=== PATIENT | male | born 1960 ===

== ENCOUNTER → 2020-09-20 11:42 | Outpatient (BNVA) | payer MEDICAID, SELFPAY | PROVIDERS: PCP Internal Medicine Geriatric Medicine; Visit Provider Surgery | DX: D17.21 Benign lipomatous neoplasm of skin and subcutaneous tissue of right arm (principal) | CPT/HCPCS: 99212 ==

== ENCOUNTER 2020-09-29 06:07 | Day surgery (SDC) | payer MEDICAID, SELFPAY ==
[2020-09-23 16:32] VITALS: BMI 40.2
--- NOTE | 2020-09-28 09:55 | HO.ANESPROP2 ---
Documented by User: Nell Freeman 09/28/20 09:57 HPI - Anesthesia Eval Consult details Narrative: 60yo M for Right Excision of Forearm Cyst PMFSH Active Problems Active Problems: All Active Problems (Updated 09/23/20 @ 16:35 by Nancy Loera) Lipoma of right forearm (Acute) Past Medical History Medical History Asthma BPH (benign prostatic hyperplasia) Hypercholesterolemia Osteoarthritis Family History Family History Father Heart failure Mother Heart failure Brother Diabetes mellitus Brother Diabetes mellitus Maternal Uncle Prostate cancer Surgical History Surgical History History of circumcision History of colonoscopy Social History Social History Alcohol intake: former Smoking Status: Former smoker Years Smoked: 2013 Use of substances other than those prescribed or required for medical reasons: No Advance Directives: No Advance Directives Information Provided: No Advance Directives on File: No Meds Allergies Allergy/AdvReac Type Severity Reaction Status Date / Time No Known Allergies Allergy Verified 09/23/20 16:30 [No Known Allergies*] Home Medications Medication Instructions Recorded Confirmed Last Taken Type hydrocortisone 1 % topical spray 1 appl TOPICAL BID PRN 07/08/20 09/20/20 Unknown History naphazoline 0.025 %-pheniramine 1 drp OPHTHALMIC (EYE) BID-QID 07/08/20 09/20/20 Unknown History 0.3 % eye drops acetaminophen [Pain Relief 2 tab PO Q8H PRN 09/23/20 09/23/20 Unknown History (acetaminophen)] albuterol sulfate [ProAir HFA] 2 puff PO Q4-6H PRN 09/23/20 09/23/20 Unknown History fluticasone propionate [Flovent 1 puff PO BID 09/23/20 09/23/20 Unknown History HFA] tamsulosin 1 cap PO DAILY 09/23/20 09/23/20 Unknown History Exam Exam Date and Time: September 28, 2020 0955 Height,Weight and Vital Signs: Height 6 ft Weight 134.717 kg Assessment and Plan Assessment Anesthesia Assessment: Chart Reviewed Documented by User: Melinda Tavarez 09/29/20 08:04 [facility] Past Medical History Medical History Asthma BPH (benign prostatic hyperplasia) Hypercholesterolemia Osteoarthritis Family History Family History Father Heart failure Mother Heart failure Brother Diabetes mellitus Brother Diabetes mellitus Maternal Uncle Prostate cancer Surgical History Surgical History History of circumcision History of colonoscopy Social History Social History Alcohol intake: former Smoking Status: Former smoker Years Smoked: 2013 Use of substances other than those prescribed or required for medical reasons: No Advance Directives: No Advance Directives Information Provided: No Advance Directives on File: No Meds Allergies Allergy/AdvReac Type Severity Reaction Status Date / Time No Known Allergies Allergy Verified 09/23/20 16:30 [No Known Allergies*] Home Medications Medication Instructions Recorded Confirmed Last Taken Type hydrocortisone 1 % topical spray 1 appl TOPICAL BID PRN 07/08/20 09/20/20 Unknown History naphazoline 0.025 %-pheniramine 1 drp OPHTHALMIC (EYE) BID-QID 07/08/20 09/20/20 Unknown History 0.3 % eye drops acetaminophen [Pain Relief 2 tab PO Q8H PRN 09/23/20 09/23/20 Unknown History (acetaminophen)] albuterol sulfate [ProAir HFA] 2 puff PO Q4-6H PRN 09/23/20 09/23/20 Unknown History fluticasone propionate [Flovent 1 puff PO BID 09/23/20 09/23/20 Unknown History HFA] tamsulosin 1 cap PO DAILY 09/23/20 09/23/20 Unknown History Exam Airway Mallampati Class: III (Poor dentition) TM Dist: >3cm Neck ROM: Full Heart: RRR Lungs: CTA Assessment and Plan Assessment Anesthesia Assessment: Anesthesia Plan Discussed and Chart Reviewed Final Anesthetic Review NPO: Yes ASA Class: II Final Preanesthetic Review: Consent Obtained/Reviewed and Anes Risks/Benef Reviewed Patient Risk: Intermediate Procedure Risk: Low Anesthetic Plan Anesthetic Plan: GA Disposition: Standard PACU
[2020-09-29] VITALS (8 sets, daily range): BP systolic 106–136; BP diastolic 62–78; PULSE 65–92; RESP 16–18; TEMP 36.4–36.6; O2SAT 94–98
[2020-09-29] MEDS: Lactated Ringers 1,000 ML 100 ML IVCONT (06:42)
--- NOTE | 2020-09-29 07:07 | MHC.SHP ---
Pre-Procedural Eval Section A The patient is an INPATIENT: No Changes since office visit: Yes Patient answered all questions; No Cold of Flu in the past 2 weeks, No New Medical Problems and No Changes in Medication The History & Physical has been completed within 30 days and I have reviewed it.: Yes Section B Chief Complaint: Lipoma of right forearm Allergies: Allergies Allergy/AdvReac Type Severity Reaction Status Date / Time No Known Allergies Allergy Verified 09/23/20 16:30 [No Known Allergies*] Plan Diagnosis/Plan: Unchanged I have reviewed the history and physical and performed a pertinent physical examination on my patient. No changes have occurred unless specified.
--- NOTE | 2020-09-29 08:18 | W.PM.OPN ---
Operative Note Operative Note Date of Service: 09/29/20 Narrative: Preoperative diagnosis: Lipoma right forearm Postoperative diagnosis:same Procedure: Excision of lipoma right forearm Surgeon: Mckay Murrell MD Resource Conservation Specialist: Kate Polk PA-C Anesthesia:General LMA Indications for procedure: expanding lipoma of the right forearm which has become symptomatic with pain in the forearm extending down into the hand with areas of numbness in the hand. Operative findings: Larger than 6 cm lipoma extending below the flexor retinaculum. Superficial nerves were compressed by the lipoma. Specimen: Lipoma right forearm Estimated blood loss: 2 mL Complications: none Procedure details: patient was brought to the OR placed in a supine position. After administering general anesthesia the skin was prepped with ChloraPrep and draped in a sterile fashion over the right forearm. A surgical time-out was called and the consent confirmed. Patient received preoperative antibiotics and Venodyne boots were in place. Local anesthesia consisting of 0.5% Sensorcaine was infiltrated in the longitudinal fashion directly over the lipoma. Incision measuring approximately 5 cm was then created with a 15 blade. This was carried down through subcu tissue and up to the capsule of the lipoma. This was incised with a scalpel. The lipoma was then brought up through the incision. Combination of sharp and blunt dissection was then used to dissect the lipoma from the surrounding subcutaneous tissue. The lipoma was found to enter below the muscular fascia which was incised with the Metzenbaum scissors. A large component of the lipoma was found below the muscular fascia. Once the fascia was opened the lipoma easily was mobilized and removed. This was sent to pathology for further examination. The wounds were checked for hemostasis using electrocautery. Fascia was then reapproximated using interrupted 3 0 Polysorb sutures with special attention to avoid injury to the surrounding vascular structures or nerve. Subcutaneous tissue and dermis were reapproximated using interrupted 3-0 Polysorb sutures. Skin was then closed using a running subcuticular 4-0 Polysorb suture. Sterile dressings were then applied. The patient tolerated the procedure well. Sponge, instrument, needle counts reported as correct. Patient was transferred to PACU in stable condition.
== END 2020-09-29 09:48 | disposition home or self-care (01) ==
PROVIDERS: PCP Internal Medicine Geriatric Medicine; Visit Provider Surgery
PROC: (CPT 25073; principal; 2020-09-29 07:30)
DX: D17.21 Benign lipomatous neoplasm of skin and subcutaneous tissue of right arm (principal); J45.909 Unspecified asthma, uncomplicated; Z87.891 Personal history of nicotine dependence; Z79.51 Long term (current) use of inhaled steroids; Z79.899 Other long term (current) drug therapy
CPT/HCPCS: 25073; 88304; J0690; J1100; J2250; J2405; J3010

== ENCOUNTER → 2020-10-12 10:07 | Outpatient (BNVA) | payer MEDICAID, SELFPAY | PROVIDERS: PCP Internal Medicine Geriatric Medicine; Visit Provider Surgery | DX: D17.21 Benign lipomatous neoplasm of skin and subcutaneous tissue of right arm (principal) | CPT/HCPCS: 99212 ==

== ENCOUNTER → 2020-11-11 14:52 | Outpatient (BNVA) | payer MEDICAID, SELFPAY | PROVIDERS: PCP Internal Medicine Geriatric Medicine; Visit Provider Urology | DX: N52.01 Erectile dysfunction due to arterial insufficiency (principal); N40.0 Benign prostatic hyperplasia without lower urinary tract symptoms; D17.21 Benign lipomatous neoplasm of skin and subcutaneous tissue of right arm | CPT/HCPCS: 51798; 81002; 99212 ==

== ENCOUNTER 2021-02-09 16:02 | Outpatient (REF) | payer MEDICARE, MEDICAID, SELFPAY ==
--- NOTE | ~2021-02-09 | XR_ITS ---
EXAMINATION: XR CHEST CLINICAL INFORMATION: Dyspnea COMPARISON: Previous chest x-ray most recent April 2019 TECHNIQUE: 2 views of the chest were obtained. FINDINGS: The cardiac and mediastinal contours are stable. The lung volumes are low. The lungs are clear. There is no pleural effusion or pneumothorax. There are degenerative changes of the spine. XR/XR chest 2V IMPRESSION: No evidence for acute disease in the chest.
[2021-02-09 17:47] LABS: Prostate Specific Antigen 0.28 ng/mL (<0.05-4.0)
[2021-02-15 11:56] LABS: Testosterone, Free 19.4 pg/mL (35.0-155.0); Testosterone, Total 113 ng/dL (250-1100)
== END 2021-02-09 16:03 | disposition home or self-care (01) ==
LOC: HO.LAB 16:02
PROVIDERS: Absent Provider Urology; PCP Internal Medicine Geriatric Medicine; Visit Provider Internal Medicine Geriatric Medicine
DX: Z12.5 Encounter for screening for malignant neoplasm of prostate (principal); R06.00 Dyspnea, unspecified; R06.01 Orthopnea; R60.9 Edema, unspecified; N13.8 Other obstructive and reflux uropathy; N40.1 Benign prostatic hyperplasia with lower urinary tract symptoms; N52.01 Erectile dysfunction due to arterial insufficiency; E29.1 Testicular hypofunction
CPT/HCPCS: 36415; 71046; 84153; 84402; 84403

== ENCOUNTER 2021-08-17 08:05 | Outpatient (REF) | payer MEDICARE, MEDICAID, SELFPAY ==
--- NOTE | ~2021-08-17 | XR_ITS ---
EXAMINATION: BILATERAL FOOT X-RAY CLINICAL INFORMATION: Bilateral foot pain COMPARISON: Bilateral ankle x-rays TECHNIQUE: 3 views of each foot FINDINGS: Right: No fracture or dislocation is seen. There is hallux valgus deformity and degenerative change at the first MTP joint. Joint spaces are otherwise normal. There are calcaneal spurs. Left: No fracture or dislocation is seen. There is mild hallux valgus deformity and degenerative change at the first MTP joint. Joint spaces are otherwise normal. There are calcaneal spurs. XR/XR foot LT min 3V IMPRESSION: Bilateral arthritis at the first MTP joints and hallux valgus deformity. Bilateral calcaneal spurs.
--- NOTE | ~2021-08-17 | XR_ITS ---
EXAMINATION: BILATERAL FOOT X-RAY CLINICAL INFORMATION: Bilateral foot pain COMPARISON: Bilateral ankle x-rays TECHNIQUE: 3 views of each foot FINDINGS: Right: No fracture or dislocation is seen. There is hallux valgus deformity and degenerative change at the first MTP joint. Joint spaces are otherwise normal. There are calcaneal spurs. Left: No fracture or dislocation is seen. There is mild hallux valgus deformity and degenerative change at the first MTP joint. Joint spaces are otherwise normal. There are calcaneal spurs. XR/XR foot RT min 3V IMPRESSION: Bilateral arthritis at the first MTP joints and hallux valgus deformity. Bilateral calcaneal spurs.
== END 2021-08-17 08:06 | disposition home or self-care (01) ==
LOC: HO.XRAY 08:05
PROVIDERS: Absent Provider Internal Medicine Geriatric Medicine; PCP Internal Medicine Geriatric Medicine; Visit Provider Internal Medicine Geriatric Medicine
DX: M79.671 Pain in right foot (principal); M79.672 Pain in left foot
CPT/HCPCS: 73630

== ENCOUNTER 2022-05-14 17:05 | Outpatient (REF) | payer OTHER, SELFPAY ==
--- NOTE | ~2022-05-14 | MR_ITS ---
EXAMINATION: MR LUMBAR SPINE WITHOUT CONTRAST CLINICAL INFORMATION: 62-year-old with self-reported low back pain and bilateral sciatica. Radiculopathy, lumbar region. COMPARISON: None TECHNIQUE: MRI of the lumbar spine was obtained using routine sequences without contrast. FINDINGS: CORONAL ALIGNMENT: Normal. SAGITTAL ALIGNMENT: Normal. LUMBOSACRAL JUNCTION: Normal. 5 nonrib-bearing lumbar-type vertebral bodies. VERTEBRAL BODIES: Vertebral body heights are well maintained. DISC SPACES AND ENDPLATES: The intervertebral disc space heights are well maintained. There are mild degrees of disc desiccation at multiple levels, most apparent at L2-L3 and L3-L4 and there are ecor-np-jdtajaev degrees of anterolateral spondylosis at multiple levels, most prominent at L1-L2 and L2-L3. There is fishmouth remodeling along the endplates throughout the lumbar spine. SPINAL CANAL: There is fatty infiltration of the filum terminale which measures 1.5 mm in maximum cross-sectional diameter. BONE MARROW: No significant marrow-replacing process or bone marrow edema. CONUS MEDULLARIS: Terminates at L1. Morphology and signal is normal. INTRADURAL NERVE ROOTS: Within normal limits. L5-S1: Minor annular bulging noted without significant thecal sac encroachment. Moderate left and the kreoislq-vz-wprnrx right facet arthropathy noted without significant canal or neural foraminal stenosis. L4-L5: No significant disc bulging or herniation. Small left lateral disc osteophyte complex encroaching on the inferior left neural foramen without neural impingement. Sblk-vt-tvdppdpp right and ojnqpufw-ai-pjzwjs left-sided facet arthropathy noted without significant spinal canal stenosis. There is spyd-cg-iofenrmx left-sided neural foraminal narrowing without neural impingement. L3-L4: Minor disc bulging noted with a superimposed small right paramedian to right foraminal disc protrusion with mild flattening of the ventral dural sac asymmetric to the right without neural impingement. No significant facet arthrosis or canal stenosis. There is mild right-sided foraminal narrowing without neural impingement. L2-L3: Small right-sided inferior foraminal disc protrusion noted without neural impingement. No significant facet arthrosis, canal or neural foraminal stenosis. L1-L2: No significant disc bulge or herniation. No facet arthrosis, canal or neural foraminal stenosis. PARASPINAL/RETROPERITONEAL: The paravertebral soft tissues appear unremarkable. There is dependent soft tissue edema in the subcutaneous fat posteriorly. MR/MR lumbar spine wo con IMPRESSION: 1. Normal spinal alignment, with mild multilevel disc desiccation and multilevel spondylosis. 2. Small right paramedian to right foraminal disc protrusion at L3-L4 and small right inferior foraminal disc protrusion at L2-L3 without neural impingement or significant spinal canal stenosis. 3. Multilevel bilateral facet arthropathy, most apparent on the left at L4-L5 and L5-S1 with mlau-sn-yontopnv left-sided neural foraminal stenosis at L4-L5 without neural impingement and mild right-sided neural foraminal narrowing at L3-L4 without neural impingement. 4. Fatty infiltration of the filum terminale which is a developmental finding.
== END 2022-05-14 17:06 | disposition home or self-care (01) ==
LOC: HO.MRI 17:05
PROVIDERS: PCP Internal Medicine Geriatric Medicine; Visit Provider Internal Medicine Geriatric Medicine
DX: M54.16 Radiculopathy, lumbar region (principal); R29.898 Other symptoms and signs involving the musculoskeletal system
CPT/HCPCS: 72148

== ENCOUNTER 2023-02-12 16:34 | Outpatient (REF) | payer OTHER, SELFPAY ==
[2023-02-12 18:15] LABS: Creatinine Urine 228.22 mg/dL
== END 2023-02-12 16:35 | disposition home or self-care (01) ==
LOC: HO.HHCL 16:34
PROVIDERS: Visit Provider Internal Medicine Geriatric Medicine
DX: E11.69 Type 2 diabetes mellitus with other specified complication (principal); E66.9 Obesity, unspecified; I10 Essential (primary) hypertension
CPT/HCPCS: 82043

== ENCOUNTER 2023-05-29 11:03 | Outpatient (REF) | payer OTHER, SELFPAY ==
[2023-05-29 14:09] LABS: Anion Gap 9 (12-20); Blood Urea Nitrogen 14 mg/dL (9-16); Carbon Dioxide 29 mmol/L (22-29); Chloride 107 mmol/L (96-108); Estimated Glomerular Filt Rate > 60; Glucose Random 121 mg/dL (60-115); Potassium 4.3 mmol/L (3.3-5.1); Sodium 141 mmol/L (135-145)
[2023-05-29 14:26] LABS: Creatinine Urine 155.67 mg/dL; Microalbum/Creatinine Ratio Ur 5.1 ug/mg cr (<30)
[2023-05-29 14:31] LABS: Vitamin B12 312 pg/mL (200-900)
[2023-06-01 23:09] LABS: Testosterone, Total 298 ng/dL (250-1100)
== END 2023-05-29 11:04 | disposition home or self-care (01) ==
LOC: HO.HHCL 11:03
PROVIDERS: Visit Provider Internal Medicine Geriatric Medicine
DX: E11.69 Type 2 diabetes mellitus with other specified complication (principal); E66.9 Obesity, unspecified; I95.9 Hypotension, unspecified; R79.89 Other specified abnormal findings of blood chemistry
CPT/HCPCS: 36415; 80048; 82043; 82570; 82607; 84403

== ENCOUNTER → 2023-09-10 11:24 | Outpatient (BNVA) | payer OTHER, SELFPAY | PROVIDERS: PCP Internal Medicine Geriatric Medicine; Visit Provider Physician Assistant ==

== ENCOUNTER 2023-10-24 09:32 | Outpatient (REF) | payer OTHER, SELFPAY ==
[2023-10-24 11:52] LABS: Anion Gap 12 (12-20); Blood Urea Nitrogen 15 mg/dL (9-16); Calcium 10.1 mg/dL (8.4-10.2); Carbon Dioxide 31 mmol/L (22-29); Chloride 105 mmol/L (96-108); Estimated Glomerular Filt Rate > 60; Glucose Random 130 mg/dL (60-115); Potassium 4.2 mmol/L (3.3-5.1); Sodium 144 mmol/L (135-145)
== END 2023-10-24 09:33 | disposition home or self-care (01) ==
LOC: HO.HHCL 09:32
PROVIDERS: Visit Provider Internal Medicine Geriatric Medicine
DX: I10 Essential (primary) hypertension (principal)
CPT/HCPCS: 36415; 80048

== ENCOUNTER 2023-12-10 06:34 | Day surgery (SDC) | payer OTHER, SELFPAY ==
[2023-12-10 07:17] VITALS: BMI 41.6
[2023-12-10 07:19] VITALS: BP 112/72; PULSE 75; RESP 16; TEMP 36.1; O2SAT 96
[2023-12-10] MEDS: Lactated Ringers 1,000 ML 100 ML IVCONT (07:27)
[2023-12-10 07:35] LABS: Glucose, Whole Blood 116 mg/dL (60-115)
--- NOTE | 2023-12-10 07:45 | HO.ANESPROP2 ---
Documented by User: Nell Freeman NP 12/09/23 11:48 HPI - Anesthesia Eval Consult details Narrative: 63yo M for Colonoscopy PMFSH Active Problems Active Problems: All Active Problems Sleep apnea (Acute) History of colon polyps (Acute) BPH (benign prostatic hyperplasia) (Acute) Erectile dysfunction due to arterial insufficiency (Acute) Lipoma of right forearm (Acute) Past Medical History Medical History (Updated 12/10/23 @ 07:16 by Alayna Palencia RN) Diabetes HTN (hypertension) Asthma BPH (benign prostatic hyperplasia) Hypercholesterolemia Osteoarthritis Family History Family History Father Heart failure Mother Heart failure Brother Diabetes mellitus Brother Diabetes mellitus Maternal Uncle Prostate cancer Surgical History Surgical History (Updated 12/10/23 @ 07:17 by Alayna Palencia RN) Hx of hand surgery History of circumcision History of colonoscopy Social History Social History (Updated 09/10/23 @ 11:52 by Temitope Freeman PA-C) Household Members Other:: single Alcohol intake: former Patient Tobacco Use Status: Former Tobacco user Quit Date: 10 yrs ago Years Smoked: 2013 Use of substances other than those prescribed or required for medical reasons: No Are you DNR?: No Advance Directives: No Advance Directives Information Provided: Yes Current occupational status: unemployed Meds Allergies Allergy/AdvReac Type Severity Reaction Status Date / Time No Known Allergies Allergy Verified 12/10/23 07:16 [No Known Allergies*] Home Medications ?Medication ?Instructions ?Recorded ?Confirmed ?Last Taken ?Type hydrocortisone 1 % topical spray 1 appl topical BID PRN 07/08/20 09/10/23 Unknown History (Anti-Itch (hydrocortisone)) naphazoline 0.025 %-pheniramine 1 drp ophthalmic (eye) BID-QID 07/08/20 09/10/23 Unknown History 0.3 % eye drops (Naphcon-A) acetaminophen 650 mg 2 tab PO Q8H PRN Pain 09/23/20 09/10/23 Unknown History tablet,extended release (Pain Relief (acetaminophen)) albuterol sulfate 90 mcg/actuation 2 puff PO Q4-6H PRN Shortness Of 09/23/20 09/10/23 09/29/20 History aerosol inhaler (ProAir HFA) Breath fluticasone propionate 110 1 puff PO BID 09/23/20 09/10/23 Unknown History mcg/actuation HFA aerosol inhaler (Flovent HFA) Assessment and Plan Assessment Anesthesia Assessment: Chart Reviewed Documented by User: Alayna Vasquez DO 12/10/23 07:48 [facility] Past Medical History Medical History (Updated 12/10/23 @ 07:16 by Alayna Palencia, RN) Diabetes HTN (hypertension) Asthma BPH (benign prostatic hyperplasia) Hypercholesterolemia Osteoarthritis Family History Family History Father Heart failure Mother Heart failure Brother Diabetes mellitus Brother Diabetes mellitus Maternal Uncle Prostate cancer Family history of problems with anesthesia: No Surgical History Surgical History (Updated 12/10/23 @ 07:17 by Alayna Palencia RN) Hx of hand surgery History of circumcision History of colonoscopy History of Problems with Anesthesia: No Social History Social History (Updated 09/10/23 @ 11:52 by Temitope Freeman PA-C) Household Members Other:: single Alcohol intake: former Patient Tobacco Use Status: Former Tobacco user Quit Date: 10 yrs ago Years Smoked: 2013 Use of substances other than those prescribed or required for medical reasons: No Are you DNR?: No Advance Directives: No Advance Directives Information Provided: Yes Current occupational status: unemployed Meds Allergies Allergy/AdvReac Type Severity Reaction Status Date / Time No Known Allergies Allergy Verified 12/10/23 07:16 [No Known Allergies*] Home Medications ?Medication ?Instructions ?Recorded ?Confirmed ?Last Taken ?Type hydrocortisone 1 % topical spray 1 appl topical BID PRN 07/08/20 09/10/23 Unknown History (Anti-Itch (hydrocortisone)) naphazoline 0.025 %-pheniramine 1 drp ophthalmic (eye) BID-QID 07/08/20 09/10/23 Unknown History 0.3 % eye drops (Naphcon-A) acetaminophen 650 mg 2 tab PO Q8H PRN Pain 03/05/21 02/20/24 Unknown History tablet,extended release (Pain Relief (acetaminophen)) albuterol sulfate 90 mcg/actuation 2 puff PO Q4-6H PRN Shortness Of 09/23/20 09/10/23 09/29/20 History aerosol inhaler (ProAir HFA) Breath fluticasone propionate 110 1 puff PO BID 09/23/20 09/10/23 Unknown History mcg/actuation HFA aerosol inhaler (Flovent HFA) Exam Exam Date and Time: December 10, 2023 0745 Height,Weight and Vital Signs: Height 6 ft Weight 139.253 kg Vital Signs Temperature 96.9 F 12/10/23 07:19 Pulse Rate 75 12/10/23 07:19 Respiratory Rate 16 12/10/23 07:19 Blood Pressure 112/72 12/10/23 07:19 Pulse Oximetry 96 12/10/23 07:19 Oxygen Delivery Method Room Air 12/10/23 07:19 Temperature 96.9 F 12/10/23 07:19 Pulse Rate 75 12/10/23 07:19 Respiratory Rate 16 12/10/23 07:19 Blood Pressure 112/72 12/10/23 07:19 Pulse Oximetry 96 12/10/23 07:19 Oxygen Delivery Method Room Air 12/10/23 07:19 Airway Mallampati Class: II TM Dist: >3cm Neck ROM: Full Loose/Missing/Broken Teeth: Yes (multiple missing teeth but nothing loose per patient) Heart: S1S2 Lungs: CTAB Assessment and Plan Assessment Anesthesia Assessment: Anesthesia Plan Discussed and Chart Reviewed Final Anesthetic Review Family History of Problems with Anesthesia: No History of Problems with Anesthesia: No NPO: Yes ASA Class: III Final Preanesthetic Review: No Changes in Pt Med Stat, Meds/Allgs Chart Reviewed, Consent Obtained/Reviewed and Anes Risks/Benef Reviewed Patient Risk: Intermediate Procedure Risk: Low Anesthetic Plan Anesthetic Plan: MAC: and Agree w/ Assess. and Plan Disposition: Standard PACU
--- NOTE | 2023-12-10 08:12 | MHC.SHP ---
Pre-Procedural Eval Section A - 24 Hr Update-Section A only Date of Service: 12/10/23 Section B - Complete if H&P > 30 days Chief Complaint: Encounter for screening for malignant neoplasm of Details of Present Illness: History of circumcision History of colonoscopy Family History Father Heart failure Mother Heart failure Brother Diabetes mellitus Brother Diabetes mellitus Maternal Uncle Prostate cancer Present Medications: see Short Stay Collaborative assessment Allergies: Allergies Allergy/AdvReac Type Severity Reaction Status Date / Time No Known Allergies Allergy Verified 12/10/23 07:16 [No Known Allergies*] Review of Systems Review of Systems Comment: Ten point ROS negative Exam Exam Comment: Gen appear: No acute distress HEENT: no icterus Chest: No overt resp distress Abd: soft, nontender, nondistended Psych: Stable affect, answering questions appropriately Neuro: A/Ox3 noted to move all extremities spontaneously Ext: no peripheral edema Plan Diagnosis/Plan: Unchanged I have reviewed the history and physical and performed a pertinent physical examination on my patient. No changes have occurred unless specified. Time Spent With Patient Time: Total time managing care of this patient today ____ minutes.
--- NOTE | 2023-12-10 08:55 | P.OPN-COLO_ITS ---
Colonoscopy Operative Note Operative Note Date of Service: 12/10/23 Narrative: Procedure: Colonoscopy Indication: Screening Endoscopist: Zahira Franks MD Anesthesia Provider: Lis Campos CRNA Anesthesia type: MAC Instrument: Olympus [id number]-H190L Consent: Indication, risks vs benefits, and alternatives were discussed with the patient who gave written informed consent to proceed. EKG, pulse, pulse oximetry and blood pressure were monitored throughout the procedure. Please see anesthesia flowsheet. Procedure: The patient was brought to the procedure room and placed in the left lateral decubitus position. IV medications were administered by the anesthesia provider in attendance. A digital rectal exam was performed which was normal. A distal attachment cap was affixed to the tip of the colonoscope which was then inserted through the anus and advanced through the colon to the cecum at 80 cm,and terminal ileum. Appendiceal orifice and ileocecal valve were identified. Mucosa was carefully examined under high definition white light as the instrument was slowly withdrawn in a retrograde panoramic fashion. Retroflexion was performed in rectum. The procedure was not difficult. There were no immediate obvious complications. The quality of the prep was BBPS: 2+3+2 = adequate Withdrawal time 11 minutes. Limitations: No limitations. Findings: Mucosa: Normal to cecum and terminal ileum. Protruding lesions: * 2 sessile polyp of size 3-7 mm in ascending colon. Cold snare polypectomy was performed. The polyps were completely removed and retrieved. * 1 sessile polyp of size 2 mm in transverse colon. Cold snare polypectomy was performed. The polyp was completely removed and retrieved. * Large internal hemorrhoids without stigmata of recent bleeding. Impression: 1. Normal colon and terminal ileum mucosa 2. Total of 3 polyps removed 3. Imternal hemorrhoids Recommendations: - Follow path results. - Repeat colonoscopy in 3-5 years depending on results.
[2023-12-10 09:00] VITALS: BP 100/57; PULSE 60; RESP 14; TEMP 36.1; O2SAT 96
[2023-12-10 09:15] VITALS: BP 140/85; PULSE 53; RESP 16; TEMP 36.6; O2SAT 95
== END 2023-12-10 09:56 | disposition home or self-care (01) ==
PROVIDERS: Visit Provider Internal Medicine
PROC: 0DJD8ZZ Inspection of Lower Intestinal Tract, Via Natural or Artificial Opening Endoscopic (ICD-10-PCS; CPT 45378; principal; 2023-12-10 08:00)
DX: Z12.11 Encounter for screening for malignant neoplasm of colon (principal); D12.2 Benign neoplasm of ascending colon; D12.3 Benign neoplasm of transverse colon; K64.8 Other hemorrhoids; Z86.010 Personal history of colon polyps; J45.909 Unspecified asthma, uncomplicated; G47.33 Obstructive sleep apnea (adult) (pediatric); Z99.89 Dependence on other enabling machines and devices
CPT/HCPCS: 45385; 82947; 88305; J2250; J2704

== ENCOUNTER → 2023-12-10 06:34 | Outpatient (BNV) | payer OTHER, SELFPAY | PROVIDERS: Visit Provider Internal Medicine | DX: Z12.11 Encounter for screening for malignant neoplasm of colon (principal); D12.3 Benign neoplasm of transverse colon; D12.2 Benign neoplasm of ascending colon; K64.0 First degree hemorrhoids | CPT/HCPCS: 45385 ==

== ENCOUNTER 2023-12-24 10:49 | Outpatient (AMB) | payer OTHER, SELFPAY ==
--- NOTE | 2023-12-24 10:53 | MHC.OFFVIS ---
Vital Signs 12/24/23 10:54 Height 6 ft Weight 307 lb BMI 41.6 BP 137/77 Blood Pressure Location Lt brachial Position Sitting Pulse 76 Intake Visit Reasons: s/p colon Intake Note: Patient follow up for Colonoscopy results. Patient denies any GI issues. Pipe Smoking Machine Operator Required: Yes Pipe Smoking Machine Operator Name: [facility] interpeter Accompanied by: Self / Same As Patient Allergies No Known Allergies [No Known Allergies*] Allergy (Verified 12/24/23 10:52) Medication List - Last Reconciled 12/24/23 by Temitope Freeman PA-C acetaminophen ER (Pain Relief (acetaminophen)) 2 tabs PO Q8H PRN albuterol sulfate 90 mcg/actuation (ProAir HFA) 2 puffs PO Q4-6H PRN fluticasone propionate 110 mcg/actuation (Flovent HFA) 1 puff PO BID hydrocortisone 1% (Anti-Itch (hydrocortisone)) 1 appl topical BID PRN naphazoline-pheniramine 0.025-0.3 % (Naphcon-A) 1 drp ophthalmic (eye) BID-QID sildenafil 100 mg PO DAILY PRN 30 days tamsulosin 0.4 mg PO DAILY 90 days HPI Comments Details: A 63 y/o male with hx polyps f/u after colonoscopy with polypectomy Reviewed procedure report/ path and recommendationd Constipation PFSH Medical History (Updated 12/24/23 @ 11:43 by Temitope Freeman PA-C) SHANAE on CPAP Diabetes HTN (hypertension) Asthma BPH (benign prostatic hyperplasia) Hypercholesterolemia Osteoarthritis Surgical History Hx of hand surgery History of circumcision History of colonoscopy Family History Father Heart failure Mother Heart failure Brother Diabetes mellitus Brother Diabetes mellitus Maternal Uncle Prostate cancer Social History Household Members Other:: single Alcohol intake: former Patient Tobacco Use Status: Former Tobacco user Years Smoked: 2013 Current occupational status: unemployed Physical Exam Vital Signs: Last Vital Signs Pulse 76 12/24/23 10:54 BP 137/77 12/24/23 10:54 BMI result Body Mass Index 41.6 Const General: cooperative, healthy appearing, comfortable and no acute distress Orientation/consciousness: patient oriented x3 Limitations: language barrier and ambulation with cane Resp Effort & Inspection: normal respiratory effort and able to speak in complete sentences Neuro General: patient oriented x3 Psych Appearance: grossly normal and well kempt Mental Status: mental status grossly normal Speech and movement: Normal speech and movement present and Clear speech present Affect: normal affect Attitude: cooperative Thought process: Normal thought process present Thought content: Normal thought content present Insight: Good insight present (Psych) Judgement: Good judgement present (Psych) Results Reviewed Results Reviewed: 11/2023- Dr. Franks Impression: 1. Normal colon and terminal ileum mucosa 2. Total of 3 polyps removed 3. Imternal hemorrhoids Recommendations: - Follow path results. - Repeat colonoscopy in 3-5 years depending on results. Name: Bhaskar Hurst Age/Sex: 63/M Attending: Zahira Franks MD : 1960 Submitted by: Zahira Franks MD Copies to: [facility] MR #: [id number] Status: [facility] Collected: 12/10/23 Location: [facility] Received: 12/10/23 Diagnosis A. Colon, ascending, 2 polyps: Tubular adenomas (multiple pieces); negative for high-grade dysplasia and carcinoma. B. Colon, transverse, polyp: Tubular adenoma; negative for high-grade dysplasia and carcinoma. Clinical History Pre-Op Dx: Screening Post-Op Dx: Colon polyps Microscopic Description Microscopic sections reviewed. Material Received A. Ascending colon polyps x2 B. Transverse colon polyp Gross Description Received in two parts. Part A: Received in formalin labeled ?ascending colon polyps x2? are multiple mcdermott-pink irregular and papular tissue fragments ranging from minute to 0.35 cm in greatest dimension and aggregating 1.2 x 1.2 x 0.3 cm, submitted in toto in a cassette labeled A. Part B: Received in formalin labeled ?transverse colon polyp? are several mcdermott and mcdermott-pink irregular and papular tissue fragments ranging from minute to 0.3 cm in greatest dimension and aggregating 1.2 x 1.0 x 0.2 cm, submitted in toto in a cassette labeled B. CEDS Copies To [facility] [address] [place], [place] [id number] Zahiar Franks MD Patient: Bhaskar Hurst Age/Sex: 63/M MR#: [id number] Page 1 of 2 Assessment & Plan Assessment & Plan (1) History of colon polyps: Comment: Very pleasant gent- hx colon polyps- Code(s): Z86.010 - Personal history of colonic polyps Category: Medical Plan: 3 year repeat (2) Chronic constipation: Code(s): K59.09 - Other constipation Category: Medical Plan: consistent bowel regimen HFD Plan 3 year repeat consistent bowel regimen HFD Medications: New docusate sodium (Colace) 200 mg (2 x 100 mg) PO BEDTIME 60 caps 5RF polyethylene glycol 3350 (Miralax) 17 grams PO DAILY 510 grams 6RF psyllium husk (Metamucil) mix into at least 8 oz of water or juice before administering 1 tbsp PO DAILY 30 days 660 grams 5RF Patient Instructions: 3 year repeat- reminder to be placed consistent bowel regimen HFD Stay well hydrated Coding Level of Care Code Est Pt Level 3 (73753) Diagnoses History of colon polyps Z86.010 Chronic constipation K59.09 Time Spent (min) 20
[2023-12-24 10:54] VITALS: BP 137/77; PULSE 76; BMI 41.6
== END 2023-12-24 12:03 | disposition home or self-care (01) ==
PROVIDERS: PCP Internal Medicine Geriatric Medicine; Visit Provider Physician Assistant
DX: K59.09 Other constipation (principal); D12.3 Benign neoplasm of transverse colon; D12.2 Benign neoplasm of ascending colon
CPT/HCPCS: 99213

== ENCOUNTER → 2023-12-24 10:49 | Outpatient (BNVA) | payer OTHER, SELFPAY | PROVIDERS: PCP Internal Medicine Geriatric Medicine; Visit Provider Physician Assistant | DX: K59.09 Other constipation (principal); D12.2 Benign neoplasm of ascending colon; D12.3 Benign neoplasm of transverse colon; Z98.890 Other specified postprocedural states | CPT/HCPCS: 99212 ==

== ENCOUNTER 2024-09-09 16:17 | Emergency (ER) | payer OTHER, SELFPAY ==
--- NOTE | ~2024-09-09 | CT_ITS ---
CLINICAL HISTORY: RLQ pain R O appendicitis CT abdomen and pelvis with contrast Comparison: None Findings: Mild bibasilar atelectasis. Steatotic change in fat deposition of the liver. The gallbladder is unremarkable. The adrenal glands are normal. Spleen approaches the upper limits of normal. Pancreas unremarkable. No hydronephrosis. Nonenlarged lymphadenopathy. Calcified and noncalcified plaque include imaged aorta and its branches. Small hiatal hernia. No small bowel obstruction. Imaged appendix is within normal limits. Moderate to severe stool burden present, including the cecum. Prostate gland with calcifications measures 6.2 cm transverse. Mild wall thickening of the urinary bladder is nonspecific. Small fat containing left inguinal hernia. Mild pelvis deformities with remodeling appear old chronic. Degenerative changes of the hips, SI joints, and spine. Including lower lumbar facet arthropathy. Mild vertebral height losses appear old chronic. IMPRESSION: 1. No CT findings of acute appendicitis. 2. Moderate to severe stool burden. No small bowel obstruction. 3. Small hiatal hernia. This document has been electronically signed by: Hector Meza MD on 09/10/2024 00:14:49
[2024-09-09 16:42] VITALS: BP 136/77; PULSE 69; RESP 16; TEMP 36.4; O2SAT 96; BMI 40.6
[2024-09-09 19:50] LABS: MANUAL DIFF FLAG NO
[2024-09-09 19:51] LABS: Basophils Percent Auto 0.4 % (0-2); Eosinophils Absolute Auto 0.2 X10*3/uL (0.0-0.4); Eosinophils Percent Auto 1.9 % (0-4); Hemoglobin 16.5 g/dl (14.0-18.0); Imm Gran Abs Auto 0.03 X10*3/uL (0.00-0.03); Imm Gran Pct Auto 0.3 % (0.0-0.4); Lymphocytes Absolute Auto 4.2 X10*3/uL (1.2-4.9); Lymphocytes Percent Auto 47.1 % (20-40); Mean Corpuscular HGB Conc 34.4 g/dl (31.0-36.0); Mean Corpuscular Hemoglobin 29.6 pg (27.0-33.0); Mean Corpuscular Volume 86.2 fL (80.0-98.0); Mean Platelet Volume 10.2 fL (9.4-12.4); Monocytes Percent Auto 10.8 % (2-11); Neutrophils Absolute Auto 3.6 x10*3/uL (2.0-8.3); Neutrophils Percent Auto 39.5 % (45-73); Platelet Count 285 X10*3/uL (160-400); Red Blood Count 5.57 X10*6/uL (4.60-5.80); Red Cell Distribution Width 13.7 % (11.0-16.0)
--- NOTE | 2024-09-09 19:52 | ED_ITS ---
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 Miky Strauss HPI narrative: 64-year-old male with a history diabetes mellitus, hypertension, hyperlipidemia, BPH, SHANAE, asthma, no abdominal surgeries who presents emergency department for evaluation of right lower quadrant abdominal pain x4 days. The patient states the pain came on gradually, the pain has been constant but waxes and wanes in intensity. Describes the pain is a stabbing sensation. At the time my evaluation the pain was 8/10. The patient had no nausea or vomiting. He states that he had 2 episodes of diarrhea with no blood in the diarrhea. Denied fever, chills, rhinorrhea, sore throat, cough, chest pain, dysuria. He states that he was having difficulty urinating and needs to push harder than usual to get the urine to come out. Related Data Home Medications ?Medication ?Instructions ?Recorded ?Confirmed hydrocortisone 1 % topical spray 1 appl topical BID PRN 07/08/20 09/10/23 (Anti-Itch (hydrocortisone)) naphazoline 0.025 %-pheniramine 1 drp ophthalmic (eye) BID-QID 07/08/20 09/10/23 0.3 % eye drops (Naphcon-A) acetaminophen 650 mg 2 tab PO Q8H PRN Pain 09/23/20 09/10/23 tablet,extended release (Pain Relief (acetaminophen)) albuterol sulfate 90 mcg/actuation 2 puff PO Q4-6H PRN Shortness Of 09/23/20 09/10/23 aerosol inhaler (ProAir HFA) Breath fluticasone propionate 110 1 puff PO BID 09/23/20 09/10/23 mcg/actuation HFA aerosol inhaler (Flovent HFA) Previous Rx's ?Medication ?Instructions ?Recorded tamsulosin 0.4 mg capsule 0.4 mg PO DAILY 90 days #90 caps 10/11/20 sildenafil 100 mg tablet 100 mg PO DAILY PRN sexual 11/11/20 activity 30 days #30 tabs docusate sodium 100 mg capsule 200 mg (2 x 100 mg) PO BEDTIME #60 12/24/23 (Colace) caps polyethylene glycol 3350 17 17 g PO DAILY #510 grams 12/24/23 gram/dose oral powder (Miralax) psyllium husk 3.4 gram/5.4 gram 1 tbsp PO DAILY 30 days #660 grams 12/24/23 oral powder (Metamucil) acetaminophen 500 mg tablet 1,000 mg (2 x 500 mg) PO Q6H PRN 09/10/24 (Tylenol Extra Strength) fever or pain #20 tabs morphine 15 mg immediate release 15 mg PO Q8H PRN pain #10 tabs 09/10/24 tablet Allergies Allergy/AdvReac Type Severity Reaction Status Date / Time No Known Allergies Allergy Verified 09/09/24 16:46 [No Known Allergies*] Review of Systems 2 Review of Systems: Yes all other systems are reviewed and are negative [facility] Past Medical History [facility] Narrative: Social history: The patient was a former smoker, he states he smoked for many years but stopped 10 years ago. Denies alcohol use. Denies drug use. Medical History SHANAE on CPAP Diabetes HTN (hypertension) Asthma BPH (benign prostatic hyperplasia) Hypercholesterolemia Osteoarthritis Surgical History Hx of hand surgery History of circumcision History of colonoscopy Family History Family History Father Heart failure Mother Heart failure Brother Diabetes mellitus Brother Diabetes mellitus Maternal Uncle Prostate cancer Social History Social History Household Members Other:: single Alcohol intake: former Patient Tobacco Use Status: Former Tobacco user Years Smoked: 2013 Advance Directives: No Advance Directives Information Provided: No Current occupational status: unemployed Physical Exam ED Vital Signs: Vital Signs - 24 hr 09/09/24 16:42 09/10/24 00:03 Temperature 97.5 F 98.1 F Pulse Rate 69 66 Respiratory Rate 16 20 Blood Pressure 136/77 93/53 L Pulse Oximetry 96 93 Oxygen Delivery Method Room Air Room Air BMI result Body Mass Index 40.6 Vital signs were normal Exam: General: Awake, alert in no distress, weight 135.7 kg, elevated BMI 40.6 kg per m2 Head: Normocephalic, atraumatic EENT: PERRL, Lids normal, sclera normal, conjunctiva normal, nose normal , ears normal, throat without erythema or exudates Neck: Supple, no adenopathy Lung: breath sounds symmetric, no wheezing, rales or rhonchi Chest: symmetric movement, nontender Heart: regular rate and rhythm, normal S1, S2 no murmurs or rubs Abdomen: Obese, soft, moderate to severe right lower quadrant tenderness, normoactive bowel sounds, no rebound, no voluntary or involuntary guarding Back: no vertebral tenderness, moderate right CVA tenderness, no left CVA tenderness Extremities: no deformities, moves all extremities symmetrically Neuro: Awake, alert, oriented, normal speech, moves all extremities symmetrically Psych: Pleasant, cooperative Course Course Course Narrative: RME, this is a rapid medical exam performed by Cory Siegel please refer to primary provider for complete H&P- 64-year-old male with history of hypertension presents for evaluation of right lower quadrant abdominal pain. Symptoms started last night. Patient is sent from urgent care to rule out acute appendicitis. The patient does have a history of chronic constipation. Plan for labs, will defer advanced imaging to primary ER provider Medications Administered Discontinued Medications Generic Name Dose Route Start Last Admin Trade Name Freq PRN Reason Stop Dose Admin Sodium Chloride 1,000 mls @ 999 mls/hr 09/09/24 22:34 09/09/24 23:20 Ns IV 09/09/24 23:34 999 mls/hr .Q1H1M STA Administration Iohexol 85 ml 09/09/24 23:35 09/09/24 23:36 Iohexol 350 Mg/Ml 100 Ml Infus..Btl IV 09/09/24 23:36 85 ml ONCE ONE Administration Ketorolac Tromethamine 15 mg 09/09/24 22:34 09/09/24 23:22 Ketorolac Tromethamine 15 Mg/Ml Vial IVPUSH 09/09/24 22:35 15 mg ONCE STA Administration Ondansetron HCl 4 mg 09/09/24 22:34 09/09/24 23:21 Ondansetron Hcl 4 Mg/2 Ml Vial IVPUSH 09/09/24 22:35 4 mg ONCE ONE Administration Medical Decision Making Medical Decision Making MDM Narrative: 64-year-old male with a history diabetes mellitus, hypertension, hyperlipidemia, BPH, SHANAE, asthma, no abdominal surgeries who presents emergency department for evaluation of constant, stabbing, waxing and waning intensity, right lower quadrant abdominal pain x4 days. Patient had no significant associated symptoms except having to apply more pressure to urinate and 2 episodes of nonbloody diarrhea. Vital signs were normal. Physical examination revealed right lower quadrant tenderness. Differential diagnosis: ?Includes but is not limited to appendicitis, diverticulitis, pancreatitis, renal colic, ureteral stone, urinary tract infection, prostatitis Course: 22:40 My interpretation patient's laboratory evaluation is as follows: CBC was normal. CMP was normal. Lipase was normal. Urinalysis was negative. I did order a CT scan of the abdomen pelvis with IV contrast, normal saline IV x1 L, Toradol 15 mg IV and Zofran 4 mg IV. 00:53 Patient did get some relief of his abdominal pain with the above treatment. The CT scan did not reveal a clear cause for the patient's pain. The patient was driving and does not want any pain medications at this time that will sedate him but he would like prescription pain medicines to take at home. The patient was advised to take Tylenol and for pain not relieved by Tylenol he was prescribed morphine 15 mg every 8 hours as needed for pain. Patient was also advised to take Metamucil twice a day for the next 2 weeks and if he does not have a significant bowel movement in 2-3 days he was advised to take extra-strength Senokot twice a day. He was given printed and verbal instructions and discharged home. He was strongly advised to return to the emergency department if he gets worse or if he was not better in the next 1-2 days. Admission/Observation Consideration of admission/observation: Escalation of care including admission/observation considered (Yes) Lab Data [facility] Lab Attestation statement: I reviewed the patient's lab results. 09/09/24 19:44 09/09/24 19:44 Labs: Lab Results 09/09/24 09/09/24 Range/Units 19:44 21:40 WBC 9.0 (4.8-10.8) X10*3/uL RBC 5.57 (4.60-5.80) X10*6/uL Hgb 16.5 (14.0-18.0) g/dl Hct 48.0 (42.0-52.0) % MCV 86.2 (80.0-98.0) fL MCH 29.6 (27.0-33.0) pg MCHC 34.4 (31.0-36.0) g/dl RDW 13.7 (11.0-16.0) % Plt Count 285 (160-400) X10*3/uL MPV 10.2 (9.4-12.4) fL Immature Gran % (Auto) 0.3 (0.0-0.4) % Neut % (Auto) 39.5 L (45-73) % Lymph % (Auto) 47.1 H (20-40) % [place] % (Auto) 10.8 (2-11) % Eos % (Auto) 1.9 (0-4) % Baso % (Auto) 0.4 (0-2) % Lymph # (Auto) 4.2 (1.2-4.9) X10*3/uL [place] # (Auto) 1.0 (0.1-1.2) X10*3/uL Eos # (Auto) 0.2 (0.0-0.4) X10*3/uL Baso # (Auto) 0.0 (0.0-0.2) X10*3/uL Abs Immat Gran (auto) 0.03 (0.00-0.03) X10*3/uL Absolute Neuts (auto) 3.6 (2.0-8.3) x10*3/uL Absolute Nucleated RBC 0.000 (0.0-0.012) X10*3/uL Nucleated RBC % (auto) 0.0 (0.0-0.2) /100WBC Sodium 140 (135-145) mmol/L Potassium 4.1 (3.3-5.1) mmol/L Chloride 108 (96-108) mmol/L Carbon Dioxide 23 (22-29) mmol/L Anion Gap 13 (12-20) BUN 14 (9-16) mg/dL Creatinine 0.83 (0.5-1.4) mg/dL Estim Creat Clear Calc 128.2 Estimated GFR > 60 Random Glucose 106 (60-115) mg/dL Calcium 10.3 H (8.4-10.2) mg/dL Total Bilirubin 0.6 (0.0-1.0) mg/dL AST 22 (5-37) U/L ALT 32 (0-40) U/L Alkaline Phosphatase 114 (39-117) U/L Total Protein 8.6 H (6.5-8.0) g/dL Albumin 4.3 (3.5-5.0) g/dL Lipase 18 (8-78) U/L Urine Color Dark Yellow Urine Appearance Clear Urine pH 5.5 (5.0-9.0) Ur Specific [place] >= 1.030 H (1.005-1.025) Urine Protein Trace (Neg-Trace) mg/dL Urine Glucose (UA) Negative (Negative) mg/dL Urine Ketones Trace (Negative) mg/dL Urine Blood Negative (Negative) Urine Nitrite Negative (Negative) Ur Leukocyte Esterase Trace H (Negative) Urine RBC 0-2 (0-2) /HPF Urine WBC 0-5 (0-5) /HPF Ur Squamous Epith Cells 3-5 (0-2) /HPF Urine Bacteria None Seen (None Seen) Hyaline Casts 11-20 (0-2) /LPF Radiology Impression Discussion of test interpretation with radiology: I have reviewed the radiologist's reading. Radiologist Impression: CT abdomen and pelvis with contrast Comparison: None Findings: Mild bibasilar atelectasis. Steatotic change in fat deposition of the liver. The gallbladder is unremarkable. The adrenal glands are normal. Spleen approaches the upper limits of normal. Pancreas unremarkable. No hydronephrosis. Nonenlarged lymphadenopathy. Calcified and noncalcified plaque include imaged aorta and its branches. Small hiatal hernia. No small bowel obstruction. Imaged appendix is within normal limits. Moderate to severe stool burden present, including the cecum. Prostate gland with calcifications measures 6.2 cm transverse. Mild wall thickening of the urinary bladder is nonspecific. Small fat containing left inguinal hernia. Mild pelvis deformities with remodeling appear old chronic. Degenerative changes of the hips, SI joints, and spine. Including lower lumbar facet arthropathy. Mild vertebral height losses appear old chronic. IMPRESSION: 1. No CT findings of acute appendicitis. 2. Moderate to severe stool burden. No small bowel obstruction. 3. Small hiatal hernia. This document has been electronically signed by: Hector Meza MD on 09/10/2024 00:14:49 Prescription Management I considered prescription management with: Pain Medication (Morphine, Tylenol) Discharge Plan Discharge Clinical Impression: Abdominal pain Qualifiers: Abdominal location: right lower quadrant Qualified Code(s): R10.31 - Right lower quadrant pain Patient Disposition: Home, Self-Care Instructions: Abdominal Pain (ED) Additional Instructions: Your blood work was unremarkable. Your urine was normal with no evidence for an infection. The CT scan of your abdomen pelvis with IV contrast did not reveal a clear cause for your pain, at this time the appendix does appear to be normal. It is reassuring that this test is normal however if your pain is not significantly better in 1-2 days or if your pain gets worse then you need to return to the emergency department so we can re-evaluate you. Take Tylenol (acetaminophen) 2 pills every 6 hours as needed for pain. For pain not relieved by Tylenol take morphine 15 mg pills, 1 pill every 6 hours as needed for pain. This medication will make you sleepy, do not drive or work while taking this medication. Morphine is a narcotic medication and can be addicting. If you are concerned about addiction you can ask the pharmacist for less pills or do not get this prescription filled. Take Metamucil 1 tsp in 8 oz of water twice a day for 2 weeks to help prevent constipation. If you do not have a good bowel movement in 2-3 days then I want you to take extra-strength Senokot 1 pill twice a day until you have a bowel movement. Follow-up with your doctor in 2 days. Please return to the emergency department if your symptoms get worse or if you develop any symptoms that are concerning to you. Prescriptions: New acetaminophen [Tylenol Extra Strength] 500 mg tablet 1,000 mg PO Q6H PRN (Reason: fever or pain) Qty: 20 0RF morphine 15 mg tablet 15 mg PO Q8H PRN (Reason: pain) Qty: 10 0RF Rx Instructions: Partial Fill upon patient request. No Action tamsulosin 0.4 mg capsule 0.4 mg PO DAILY 90 Days Qty: 90 2RF acetaminophen [Pain Relief (acetaminophen)] 650 mg tablet extended release 2 tab PO Q8H PRN (Reason: Pain) albuterol sulfate [ProAir HFA] 90 mcg/actuation HFA aerosol inhaler 2 puff PO Q4-6H PRN (Reason: Shortness Of Breath) Flovent HFA 110 mcg/actuation HFA aerosol inhaler 1 puff PO BID Anti-Itch (HC) 1 % aerosol,spray 1 appl topical BID PRN Naphcon-A 0.025-0.3 % drops 1 drp ophthalmic (eye) BID-QID sildenafil 100 mg tablet 100 mg PO DAILY PRN (Reason: sexual activity) 30 Days Qty: 30 1RF Rx Instructions: administer 60 minutes before intended activity docusate sodium [Colace] 100 mg capsule 200 mg PO BEDTIME Qty: 60 5RF polyethylene glycol 3350 [Miralax] 17 gram/dose powder 17 g PO DAILY Qty: 510 6RF Metamucil 3.4 gram/5.4 gram powder 1 tbsp PO DAILY 30 Days Qty: 660 5RF Rx Instructions: mix into at least 8 oz of water or juice before administering Print Language: Maldivian
[2024-09-09 20:16] LABS: Alanine Aminotransferase 32 U/L (0-40); Albumin Level 4.3 g/dL (3.5-5.0); Alkaline Phosphatase 114 U/L (39-117); Anion Gap 13 (12-20); Aspartate Amino Transferase 22 U/L (5-37); Bilirubin Total 0.6 mg/dL (0.0-1.0); Blood Urea Nitrogen 14 mg/dL (9-16); Calcium 10.3 mg/dL (8.4-10.2); Carbon Dioxide 23 mmol/L (22-29); Chloride 108 mmol/L (96-108); Creatinine Clr Calc Pharmacy 128.2; Estimated Glomerular Filt Rate > 60; Glucose Random 106 mg/dL (60-115); Potassium 4.1 mmol/L (3.3-5.1); Sodium 140 mmol/L (135-145); Total Protein 8.6 g/dL (6.5-8.0)
[2024-09-09 20:34] LABS: Lipase 18 U/L (8-78)
[2024-09-09 21:52] LABS: Appearance Urine Clear; Color Urine Dark Yellow; Glucose Urine UA Negative (Negative); Leukocyte Esterase Urine Trace (Negative); Nitrite Urine Negative (Negative); PH 5.5 (5.0-9.0); Specific Gravity - Urine >= 1.030 (1.005-1.025); UMIC TRIGGER UACC YES; Urine Blood Negative (Negative); Urine Ketones Trace mg/dL (Negative); Urine Protein Trace mg/dL (Neg-Trace)
[2024-09-09 22:17] LABS: Bacteria Urine None Seen (None Seen); RBC Urine 0-2 /HPF (0-2); WBC Urine 0-5 /HPF (0-5)
[2024-09-09] MEDS: 0.9 % Sodium Chloride 1,000 ML 999 ML IV (23:20)
[2024-09-09] MEDS: ondansetron HCL 4 MG/2 ML VIAL IVPUSH (23:21)
[2024-09-09] MEDS: Ketorolac Tromethamine 15 MG/ML VIAL IVPUSH (23:22)
[2024-09-09] MEDS: iohexoL 350 MG/ML 100 ML INFUS..BTL 85 ML IV (23:36)
[2024-09-10 00:03] VITALS: BP 93/53; PULSE 66; RESP 20; TEMP 36.7; O2SAT 93
[2024-09-10 01:04] VITALS: BP 140/92; PULSE 68; RESP 16; TEMP 36.2; O2SAT 96
[2024-09-10 01:23] VITALS: BP 140/92; PULSE 68; RESP 16; TEMP 36.2; O2SAT 96
== END 2024-09-10 01:26 | disposition home or self-care (01) ==
PROVIDERS: Physician Assistant; Emergency Provider Emergency Medicine Emergency Medical Services; PCP Internal Medicine Geriatric Medicine
DX: R10.31 Right lower quadrant pain (principal); I10 Essential (primary) hypertension; E78.00 Pure hypercholesterolemia, unspecified; J45.909 Unspecified asthma, uncomplicated
CPT/HCPCS: 36415; 74177; 80053; 81001; 83690; 85025; 96374; 96375; 99284; J1885; J2405; Q9967

== ENCOUNTER → 2024-09-09 22:35 | Outpatient (BNV) | payer OTHER, SELFPAY | PROVIDERS: Emergency Provider Emergency Medicine Emergency Medical Services; PCP Internal Medicine Geriatric Medicine; Visit Provider Radiology Neuroradiology | DX: K44.9 Diaphragmatic hernia without obstruction or gangrene (principal); K56.41 Fecal impaction | CPT/HCPCS: 74177 ==

== ENCOUNTER 2025-02-08 10:16 | Outpatient (REF) | payer OTHER, SELFPAY ==
--- OUTSIDE RECORDS SUMMARY | 2025-02-08 11:12 | XMS_ITS | Encounter Summary ---
Author Organization [employer] Address [address] [place] [address] 7 [place] [address] Care Team Providers Care Electro Mechanical Solar Technician Name Role Phone Name, Brain LEE Primary Care Provider [phone] Encounter Details Date Type Department Care Team (Late st Contact Info) Description 12/31/2022 Abstract [facility] [address] [place] [address] [phone] NameBrain MD [address] [place] [address] [phone] Social History Tobacco Use Types Packs/Day Years Used Date Smoking Tobacco: Former Cigarettes Smokeless Tobacco: Never Alcohol Use Standard Drinks/Week Comments Not Currently 0 (1 standard drink = 0.6 oz pur e alcohol) Depression Answer Date Recorded Patient Health Questionnaire-9 Score 0 10/15/2022 Depression Answer Date Recorded Patient Health Questionnaire-2 Score 0 10/15/2022 Sex and Gender Information Value Date Recorded Sex Assigned at Male 05/21/2022 10:14 AM EDT Legal Sex Male 10:14 AM EDT Gender Identity Male 05/21/2022 10:14 AM EDT Sexual Orientation Straight 05/21/2022 10 :14 AM EDT documented as of this encounter Plan of Treatment Upcoming Encounters Date Type Department Care Team (Late st Contact Info) Description 04/23/2025 4:00 PM EDT Office Visit [facility] [address] [place] [address] [phone] NameBrain MD [address] [place] [address] [phone] documented as of this encounter Visit Diagnoses Not on filedocumented in this encounter Additional Health Concerns Assessment Noted Time PHQ-9 Depression Total Score: 0 10/16/19 23 2:05 PM EDT documented as of this encounter Care Teams Electro Mechanical Solar Technician Relationship Specialty Start Date End Date Name, MD Brain [address] [place] [address] PCP - General Family Medicine 10/11/15 documented as of this encounter
--- OUTSIDE RECORDS SUMMARY | 2025-02-08 11:12 | XMS_ITS | Clinical Summary ---
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 Name Role Phone Unavailable Primary Care Provider Unavailabl e Social History Tobacco Use Types Packs/Day Years Used Date Smoking Tobacco: Never Assessed Sex and Gender Information Value Date Recorded Sex Assigned at Not on file Legal Sex Male 2:26 AM EST Gender Identity Not on file Sexual Orientation Not on file Plan of Treatment Health Maintenance Due Date Last Done Comments DTaP,Tdap,and Td Vaccines (1 - Tdap) 1979 Pneumococcal Vaccine: 50+ Ye ars (1 of 1 - PCV) 2010 Zoster Vaccines (1 of 2) 2010 Cholesterol Screening (Lipid Panel) 06/24/2022 Colorectal Cancer Screening: Colonoscopy 06/24/2022 HIV Screening 06/24/2022 Hepatitis C Screening 06/24/2022 Social Influencers of Health Screening 06/24/2022 COVID-19 Vaccine (1 - 2023-2 5 season) 2024 Depression Screening 07/22/2024 Influenza Vaccine (#1) 2025 RSV Immunization Adult Patie nts (1 - 1-dose 75+ series) 2035 HIB Vaccines Aged Out No longer eligi ble based on patient's age to complete this topic HPV Vaccines Aged Out No longer eligi ble based on patient's age to complete this topic Hepatitis A Vaccines Aged Out No long er eligible based on patient's age to complete this topic Hepatitis B Vaccines Aged Out No long er eligible based on patient's age to complete this topic IPV Vaccines Aged Out No longer eligi ble based on patient's age to complete this topic MMR Vaccines Aged Out No longer eligi ble based on patient's age to complete this topic Meningococcal ACWY Vaccine Aged Out N o longer eligible based on patient's age to complete this topic Meningococcal B Vaccine Aged Out No l onger eligible based on patient's age to complete this topic RSV Immunization Patients Un lynn 20 months Aged Out No longer eligible b ased on patient's age to complete this topic Varicella Vaccines Aged Out No longer eligible based on patient's age to complete this topic
[2025-02-08 11:14] LABS: MANUAL DIFF FLAG NO
[2025-02-08 11:26] LABS: Hematocrit 47.6 % (42.0-52.0); Hemoglobin 15.9 g/dl (14.0-18.0); Imm Gran Abs Auto 0.02 X10*3/uL (0.00-0.03); Imm Gran Pct Auto 0.3 % (0.0-0.4); Lymphocytes Absolute Auto 3.2 X10*3/uL (1.2-4.9); Mean Corpuscular HGB Conc 33.4 g/dl (31.0-36.0); Mean Corpuscular Hemoglobin 29.6 pg (27.0-33.0); Mean Corpuscular Volume 88.5 fL (80.0-98.0); NRBC Abs Auto 0.000 X10*3/uL (0.0-0.012); NRBC Pct Auto 0.0 /100WBC (0.0-0.2); Platelet Count 305 X10*3/uL (160-400); Red Blood Count 5.38 X10*6/uL (4.60-5.80); White Blood Count 7.0 X10*3/uL (4.8-10.8)
[2025-02-08 11:44] LABS: Alanine Aminotransferase 38 U/L (0-40); Albumin Level 4.3 g/dL (3.5-5.0); Alkaline Phosphatase 98 U/L (39-117); Anion Gap 11 (12-20); Aspartate Amino Transferase 24 U/L (5-37); Blood Urea Nitrogen 14 mg/dL (9-16); Calcium 9.4 mg/dL (8.4-10.2); Carbon Dioxide 27 mmol/L (22-29); Chloride 109 mmol/L (96-108); Cholesterol 224 mg/dL (<200); Estimated Glomerular Filt Rate > 60; HDL Cholesterol 34 mg/dL (>40); Potassium 3.9 mmol/L (3.3-5.1); Sodium 143 mmol/L (135-145); Total Protein 7.9 g/dL (6.5-8.0); Triglycerides 176 mg/dL (<150)
[2025-02-08 12:10] LABS: Prostate Specific Antigen 0.37 ng/mL (<0.05-4.0)
[2025-02-08 12:14] LABS: Microalbum/Creatinine Ratio Ur 6.8 ug/mg cr (<30)
== END 2025-02-08 10:17 | disposition home or self-care (01) ==
LOC: HO.HHCL 10:16
PROVIDERS: PCP Internal Medicine Geriatric Medicine; Visit Provider Internal Medicine Geriatric Medicine
DX: E11.65 Type 2 diabetes mellitus with hyperglycemia (principal); E11.49 Type 2 diabetes mellitus with other diabetic neurological complication; I10 Essential (primary) hypertension; N40.1 Benign prostatic hyperplasia with lower urinary tract symptoms; N13.8 Other obstructive and reflux uropathy
CPT/HCPCS: 36415; 80053; 80061; 82043; 82248; 82570; 84153; 85025